=== PATIENT | male | born 1985 | race Hispanic/Latino ===

== ENCOUNTER 2025-05-17 09:38 | Emergency (ER) | payer OTHER ==
[~2025-05-17] VITALS: Ht 193 cm; Wt 99.2 kg
[2025-05-17] MEDS ORDERED: IBUP600T42 PO (09:54)
[2025-05-17] MEDS ORDERED: IBUP200C25 PO (10:30)
[2025-05-17] MEDS: ACETAMINOPHEN *IV* 1,000 MG in IV 1 EA IV ONE (10:51)
[2025-05-17] MEDS ORDERED: HOME MED LIST COMPLETE! XX SCH (10:55)
[2025-05-17] MEDS: METHOCARBAMOL 1,000 MG/10 ML VIAL IV ONE (11:12)
[2025-05-17] MEDS ORDERED: METH-1164 PO (11:46)
[2025-05-17 11:50] VITALS: BP 108/63; TEMP 96.8; O2SAT 100
== END 2025-05-17 12:00 | disposition home or self-care (01) ==
LOC: M ED 09:38
DX: M54.50 Low back pain, unspecified (principal)
CPT/HCPCS: 72110; 96365; 96375; 99284; J0131; J2800